=== PATIENT | male | born 2000 | race Two or more races ===

== ENCOUNTER 2024-09-01 14:06 | Emergency (ER) | payer SELFPAY ==
[~2024-09-01] VITALS: Ht 182.9 cm; Wt 81.0 kg
[2024-09-01 14:47] LABS: Urine Bacteria None Seen /hpf (None Seen)
[2024-09-01 14:56] LABS: Urine Blood Negative /uL (Negative); Urine Clarity Turbid (Clear); Urine Color Dark-Yellow (Yellow); Urine Mucus FEW (None Seen); Urine Protein, UAD 1+ (Negative); Urine Urobilinogen OVER mg/dL (Negative); Urine WBC 7 /hpf (0 - 3); Urine pH 6.5 (5.0-9.0)
[2024-09-01] MEDS: methylPREDNISolone SOD SUCC 125 MG/2 ML VL IM ONE (15:01)
[2024-09-01] MEDS: HYDROcodone-ACET 10/325MG TAB PO ONE (15:01)
[2024-09-01 15:03] VITALS: BP 136/77; PULSE 88; RESP 18; TEMP 98.2; O2SAT 98
[2024-09-01] MEDS ORDERED: CYCL-839 PO (15:56)
[2024-09-01] MEDS ORDERED: LIDO5DIS21 TOP (15:56)
[2024-09-01] MEDS ORDERED: NAPR-746 PO (15:56)
== END 2024-09-01 16:01 | disposition home or self-care (01) ==
LOC: ER 14:06
DX: M54.89 Other dorsalgia (principal); V80.010A Animal-rider injured by fall from or being thrown from horse in noncollision accident, initial encounter; Y93.89 Activity, other specified; Y92.89 Other specified places as the place of occurrence of the external cause; Y99.8 Other external cause status
CPT/HCPCS: 72100; 72220; 81001; 96372; 99284; J2919